=== PATIENT | female | born 1945 | race Two or more races ===

== ENCOUNTER → 2016-10-27 | Day surgery (SDC) | payer MEDICARE, OTHER ==
[~2016-10-27] MED LIST: ATORVASTATIN CA10 MG PO; COREG12.5 MG PO; HCTZ; LISINOPRIL10 MG PO; NORVASC PO; SINGULAIR PO
--- NOTE | ~2016-10-27 | OR ---
Unit #: [id number] #: [id number] Patient: KWAKU GARCIA [id number] [address] [id number] [id number] O MR#: [id number] NAME: KWAKU GARCIA ROOM: Date of Procedure: 10/27/2016 Admission Date: 10/27/2016 Surgeon: Avi Lang M.D. : 1945 Attending Physician: Avi Lang M.D. Primary Care Physician: Hunter Gutierrez M.D. OPERATIVE REPORT PREOPERATIVE DIAGNOSIS Colorectal cancer screening in an average-risk patient. PROCEDURES PERFORMED Colonoscopy and polypectomy. POSTOPERATIVE DIAGNOSES 1. The patient had three polyps, one each in the transverse colon, descending colon, and rectum. The polyps ranged in size from 5 mm to 1.5 cm. All were removed using snare cautery polypectomy. 2. Small internal hemorrhoids. 3. Moderate sigmoid and descending colon diverticulosis. 4. Rest of the examination up to cecum and terminal ileum was normal. The quality of the prep was good. RECOMMENDATIONS 1. Follow up the results of polyp histology. 2. Repeat colonoscopy in 5 years. SEDATION USED MAC. DESCRIPTION OF PROCEDURE Following detailed explanation of potential risks and complications of a colonoscopy, namely perforation, bleeding, and complication related to sedation, the patient was brought to GI lab and laid in the left lateral decubitus position. A digital rectal examination was performed, which was normal. Lubricated tip of the Olympus video colonoscope was inserted through the anus and advanced under direct vision. The scope was advanced past rectosigmoid into descending colon. Multiple medium-sized diverticula were seen in this area. The scope tip was then navigated all the way up to cecum with visualization of the ileocecal valve and the appendiceal orifice. Preparation was excellent with good visualization and photodocumentation was obtained. Last few inches of the terminal ileum were also visualized after intubation of the ileocecal valve and appeared normal. Successive segments of the colonic mucosa were examined upon withdrawal. The patient was noted to have three polyps in total, the first one was in transverse colon, second in descending colon, third in rectum. The polyps ranged in size from 5 mm to 1.5 cm. The descending colon polyp being the largest. All the polyps were removed using snare cautery polypectomy. They were retrieved and sent for histology. No additional polyps were noted. The patient did have moderate sigmoid and Unit #: [id number] #: [id number] Patient: KWAKU GARCIA descending colon diverticulosis as well as small internal hemorrhoids at the anal verge. The scope was then withdrawn and the patient returned to the recovery area. She tolerated the procedure without any postprocedure complications. Dictated by... Steve Ty/sarita TD: 10/27/2016 18:31 JOB #: [id number] CC: Hunter Gutierrez M.D. OPERATIVE REPORT Page 1 of 1 X Avi Lang MD X PROCEDURE OPERATIVE NOTE
== END | disposition home or self-care (01) ==
LOC: COPS 12:57
PROVIDERS: Internal Medicine Gastroenterology
PROC: 0DBL8ZX Excision of Transverse Colon, Via Natural or Artificial Opening Endoscopic, Diagnostic (ICD-10-PCS; principal; 2016-10-27 14:30)
PROC: 0DBP8ZX Excision of Rectum, Via Natural or Artificial Opening Endoscopic, Diagnostic (ICD-10-PCS; 2016-10-27 14:30)
PROC: 0DBM8ZX Excision of Descending Colon, Via Natural or Artificial Opening Endoscopic, Diagnostic (ICD-10-PCS; 2016-10-27 14:30)
DX: Z12.11 Encounter for screening for malignant neoplasm of colon (principal); D12.3 Benign neoplasm of transverse colon; D12.4 Benign neoplasm of descending colon; K62.1 Rectal polyp; K57.30 Diverticulosis of large intestine without perforation or abscess without bleeding; K64.8 Other hemorrhoids; I10 Essential (primary) hypertension; E78.5 Hyperlipidemia, unspecified; Z79.899 Other long term (current) drug therapy; J45.909 Unspecified asthma, uncomplicated; Z90.710 Acquired absence of both cervix and uterus; Z98.890 Other specified postprocedural states
CPT/HCPCS: 88305